=== PATIENT | male | born 2000 | race Caucasian/White ===

== ENCOUNTER 2019-05-16 17:40 | Emergency (ER) | payer OTHER ==
[~2019-05-16] VITALS: Ht 162.6 cm; Wt 59.0 kg
== END 2019-05-16 20:37 | disposition home or self-care (01) ==
LOC: ER 17:40
DX: T22.211A Burn of second degree of right forearm, initial encounter (principal); X19.XXXA Contact with other heat and hot substances, initial encounter; Y93.89 Activity, other specified; Y92.69 Other specified industrial and construction area as the place of occurrence of the external cause; Y99.8 Other external cause status

== ENCOUNTER 2019-12-10 08:55 | Emergency (ER) | payer OTHER ==
[~2019-12-10] VITALS: Ht 162.6 cm; Wt 53.5 kg
== END 2019-12-10 09:53 | disposition home or self-care (01) ==
LOC: ER 08:55
DX: L73.8 Other specified follicular disorders (principal)

== ENCOUNTER 2021-02-20 19:09 | Emergency (ER) | payer OTHER ==
[~2021-02-20] VITALS: Ht 165.1 cm; Wt 55.3 kg
[2021-02-20] MEDS ORDERED: TYLENOL (19:42)
[2021-02-20] MEDS ORDERED: DUI500 PO (20:32)
== END 2021-02-20 20:43 | disposition home or self-care (01) ==
LOC: ER 19:09
DX: H66.90 Otitis media, unspecified, unspecified ear (principal); H61.20 Impacted cerumen, unspecified ear

== ENCOUNTER 2021-09-16 13:26 | Emergency (ER) | payer OTHER ==
[~2021-09-16] VITALS: Ht 162.6 cm; Wt 64.4 kg
[~2021-09-16 13:26] MED LIST: DUI500 PO; TYLENOL
== END 2021-09-16 18:08 | disposition home or self-care (01) ==
LOC: ER 13:26
DX: U07.1 COVID-19 (principal); Z88.0 Allergy status to penicillin

== ENCOUNTER 2022-05-09 18:20 | Emergency (ER) | payer OTHER ==
[~2022-05-09] VITALS: Ht 162.6 cm; Wt 59.0 kg
== END 2022-05-09 20:50 | disposition home or self-care (01) ==
LOC: ER 18:20
DX: S30.0XXA Contusion of lower back and pelvis, initial encounter (principal); V49.9XXA Car occupant (driver) (passenger) injured in unspecified traffic accident, initial encounter; Y93.89 Activity, other specified; Y92.413 State road as the place of occurrence of the external cause; Y99.9 Unspecified external cause status; M62.830 Muscle spasm of back; Z88.0 Allergy status to penicillin

== ENCOUNTER 2022-10-01 08:29 | Emergency (ER) | payer OTHER ==
[~2022-10-01] VITALS: Ht 162.6 cm; Wt 59.0 kg
[2022-10-01] MEDS ORDERED: DAY TIME COLD-1 EAC1 PO (10:23)
== END 2022-10-01 10:29 | disposition home or self-care (01) ==
LOC: ER 08:29
DX: B34.9 Viral infection, unspecified (principal); Z20.822 Contact with and (suspected) exposure to COVID-19; Z88.0 Allergy status to penicillin

== ENCOUNTER 2023-03-31 06:13 | Emergency (ER) | payer OTHER ==
[~2023-03-31] VITALS: Ht 162.6 cm; Wt 63.5 kg
[~2023-03-31 06:13] MED LIST changes: +DAY TIME COLD-1 EAC1 PO
[2023-03-31 08:55] LABS: HEMATOCRIT 41.2 % (39.0-48.0); HEMOGLOBIN 14.1 g/dL (13-16.00); MEAN CELL VOLUME 90.1 fL (80.0-100.00); MEAN CORPUSCULAR HEMOGLOBIN 30.8 pg (27.00-32.0); MEAN CORPUSCULAR HGB CONC 34.2 g/dl (32.0-36.0); RED BLOOD COUNT 4.57 M/uL (4.00-6.00)
[2023-03-31 09:28] LABS: PLATELET COUNT 170 K/uL (150-450)
[2023-03-31] MEDS ORDERED: TUSNEL LIQUID178 ML PO (10:33)
[2023-03-31] MEDS ORDERED: PAXLOVID 300-11 EACH PO (10:33)
== END 2023-03-31 10:54 | disposition home or self-care (01) ==
LOC: ER 06:14
PROVIDERS: General Practice
DX: U07.1 COVID-19 (principal); B34.9 Viral infection, unspecified; R53.81 Other malaise; Z88.0 Allergy status to penicillin

== ENCOUNTER 2023-11-22 05:24 | Emergency (ER) | payer OTHER ==
[~2023-11-22] VITALS: Ht 162.6 cm; Wt 65.3 kg
[~2023-11-22 05:24] MED LIST changes: +PAXLOVID 300-11 EACH PO; +TUSNEL LIQUID178 ML PO
[2023-11-22] MEDS ORDERED: AZITHROMYCIN 500 MG TABLET PO STA (06:50)
[2023-11-22] MEDS ORDERED: NEOMYCIN/POLYMYXIN B/HYDROCORT 20 DR/ML BOTTLE OT STA (06:50)
[2023-11-22] MEDS ORDERED: KETOROLAC TROMETHAMINE 10 MG TABLET PO STA (06:52)
[2023-11-22] MEDS ORDERED: ZITHROMAX500 MG PO (06:57)
[2023-11-22] MEDS ORDERED: KETO10TA2 PO (06:57)
[2023-11-22] MEDS ORDERED: AZITHROMYCIN 500 MG TABLET PO ONE (07:07)
[2023-11-22] MEDS ORDERED: NEOMYCIN/POLYMYXIN B/HYDROCORT 20 DR/ML BOTTLE OT ONE (07:08)
== END 2023-11-22 08:08 ==
LOC: ER 05:26
DX: H60.8X1 Other otitis externa, right ear (principal); Z88.0 Allergy status to penicillin

== ENCOUNTER 2024-03-10 04:50 | Emergency (ER) | payer OTHER ==
[~2024-03-10] VITALS: Ht 162.6 cm; Wt 61.7 kg
[~2024-03-10 04:50] MED LIST changes: +KETO10TA2 PO; +ZITHROMAX500 MG PO
[2024-03-10] MEDS ORDERED: METOCLOPRAMIDE HCL 5 MG/ML VIAL IM STA (05:24)
[2024-03-10] MEDS ORDERED: MECLIZINE HCL 12.5 MG TABLET PO STA (05:24)
[2024-03-10 06:51] LABS: HEMOGLOBIN 14.8 g/dL (13-16.00); MEAN CELL VOLUME 87.9 fL (80.0-100.00); MEAN CORPUSCULAR HEMOGLOBIN 30.9 pg (27.00-32.0); MEAN CORPUSCULAR HGB CONC 35.2 g/dl (32.0-36.0); RED BLOOD COUNT 4.77 M/uL (4.00-6.00); RED CELL DISTRIBUTION WIDTH 13.2 % (11.5-14.5)
[2024-03-10 06:52] LABS: PLATELET COUNT 66 K/uL (150-450)
== END 2024-03-10 07:20 | disposition home or self-care (01) ==
LOC: ER 04:52
DX: H81.10 Benign paroxysmal vertigo, unspecified ear (principal); B34.9 Viral infection, unspecified; Z88.0 Allergy status to penicillin; Z91.013 Allergy to seafood; Z20.822 Contact with and (suspected) exposure to COVID-19

== ENCOUNTER 2024-03-12 07:18 | Emergency (ER) | payer OTHER ==
[~2024-03-12] VITALS: Ht 162.6 cm; Wt 61.7 kg
[2024-03-12 09:03] LABS: HEMATOCRIT 42.7 % (39.0-48.0); HEMOGLOBIN 14.7 g/dL (13-16.00); MEAN CELL VOLUME 88.1 fL (80.0-100.00); MEAN CORPUSCULAR HEMOGLOBIN 30.4 pg (27.00-32.0); MEAN CORPUSCULAR HGB CONC 34.5 g/dl (32.0-36.0); PLATELET COUNT 158 K/uL (150-450); RED BLOOD COUNT 4.84 M/uL (4.00-6.00); RED CELL DISTRIBUTION WIDTH 13.3 % (11.5-14.5)
== END 2024-03-12 10:11 | disposition home or self-care (01) ==
LOC: ER 07:19
PROVIDERS: General Practice
DX: A90 Dengue fever [classical dengue] (principal); Z87.09 Personal history of other diseases of the respiratory system; Z88.0 Allergy status to penicillin; Z91.013 Allergy to seafood